=== PATIENT | female | born 1975 | race African-American/Black ===

== ENCOUNTER 2021-10-25 15:34 | Emergency (ER) | payer MEDICAID ==
[~2021-10-25] VITALS: Ht 165.1 cm; Wt 148.0 kg
[~2021-10-25 15:34] MED LIST: IRON; [UNRECOGNIZED DRUG - REMARK]
[2021-10-25 16:38] LABS: BASOPHILS % 0.6 % (0.0-2.0); EOSINOPHILS % 3.9 % (0.0-5.0); HEMATOCRIT. 30.9 % (36.0-48.0); LYMPHOCYTES % 37.7 % (20.0-50.0); MEAN CORPUSCULAR HEMOGLOBIN 23.8 pg (28.0-32.0); MEAN CORPUSCULAR VOLUME 73.8 fL (81.0-99.0); MEAN PLATELET VOLUME 6.9 fl (7.4-10.4); MONOCYTES % 11.5 % (2.0-8.0); NEUTROPHILS % 46.3 % (40.0-76.0); PLATELET 582 x1000/uL (130-400); RED CELL DISTRIBUTION WIDTH 18.2 % (11.6-14.6)
[2021-10-25 16:42] LABS: CHLORIDE 101 mEq/L (98-107)
[2021-10-25 16:46] LABS: HCG SCREEN NEGATIVE
[2021-10-25 17:30] VITALS: BP 138/72
== END 2021-10-25 18:53 | disposition home or self-care (01) ==
LOC: ER 15:34
DX: R07.9 Chest pain, unspecified (principal); M94.0 Chondrocostal junction syndrome [Tietze]; J45.909 Unspecified asthma, uncomplicated; E11.9 Type 2 diabetes mellitus without complications; I10 Essential (primary) hypertension; E03.9 Hypothyroidism, unspecified; Z98.890 Other specified postprocedural states
CPT/HCPCS: 36415; 71045; 80053; 83880; 84703; 85025; 93005; 99285

== ENCOUNTER 2022-01-27 07:23 | Emergency (ER) | payer MEDICAID ==
[~2022-01-27] VITALS: Ht 165.1 cm; Wt 139.0 kg
[2022-01-27] MEDS ORDERED: DEXAMETHASONE 4MG/ML 1ML VIAL IM ONE (08:15)
[2022-01-27] MEDS ORDERED: IBUPROFEN 600MG TABLET PO ONE (08:15)
[2022-01-27 08:38] VITALS: BP 164/96
[2022-01-27] MEDS ORDERED: IBUP-2029 MT (09:56)
== END 2022-01-27 10:10 | disposition home or self-care (01) ==
LOC: ER 07:23
DX: B34.9 Viral infection, unspecified (principal); E11.9 Type 2 diabetes mellitus without complications; I10 Essential (primary) hypertension; Z86.39 Personal history of other endocrine, nutritional and metabolic disease
CPT/HCPCS: 81025; 87070; 87430; 96372; 99283; J1100

== ENCOUNTER 2024-04-29 17:53 | Emergency (ER) | payer MEDICAID ==
[~2024-04-29] VITALS: Ht 165.1 cm; Wt 145.0 kg
[~2024-04-29 17:53] MED LIST changes: +IBUP-2029 MT
[2024-04-29 17:59] VITALS: O2SAT 99
[2024-04-29 23:04] LABS: CLARITY URINE CLEAR (CLEAR); COLOR URINE YELLOW (YELLOW); GLUCOSE URINE NEGATIVE (NEGATIVE); KETONES URINE NEGATIVE (NEGATIVE); LEUKOCYTE ESTERASE URINE TRACE (NEGATIVE); NITRITE URINE NEGATIVE (NEGATIVE); OCCULT BLOOD URINE NEGATIVE (NEGATIVE); PH URINE 5.5 (4.5-8.0); PROTEIN URINE NEGATIVE (NEGATIVE); SPECIFIC GRAVITY URINE 1.024 (1.005-1.030)
[2024-04-29 23:19] LABS: BACTERIA URINE 2+; RBC URINE 0-2 /hpf (0-2); SQUAMOUS EPITHELIAL CELL URINE 1+ /lpf (RARE/1+)
[2024-04-29 23:20] LABS: WBC URINE 0-2 /hpf (0-2)
[2024-04-29] MEDS ORDERED: LIDO700A15 TP (23:57)
[2024-04-29] MEDS ORDERED: NAPR-1176 MT (23:57)
[2024-04-30] MEDS: KETOROLAC 15MG/ML VIAL IM ONE (00:20)
[2024-04-30] MEDS: LIDOCAINE 5% PATCH TOP SCH (00:21)
[2024-04-30] MEDS: KETOROLAC 15MG/ML VIAL IM NR (00:21)
[2024-04-30 00:25] VITALS: BP 154/87; PULSE 91; RESP 16; TEMP 36.94740; O2SAT 99
== END 2024-04-30 00:30 | disposition home or self-care (01) ==
LOC: ER 17:53
DX: M54.50 Low back pain, unspecified (principal); I11.9 Hypertensive heart disease without heart failure; E11.9 Type 2 diabetes mellitus without complications; E05.90 Thyrotoxicosis, unspecified without thyrotoxic crisis or storm; Z91.018 Allergy to other foods; Z98.890 Other specified postprocedural states
CPT/HCPCS: 99283; 81003; 81025; 96372; J1885